=== PATIENT | male | born 1970 | race Caucasian/White ===

== ENCOUNTER 2019-01-20 08:44 | Outpatient (RCR) | payer OTHER ==
[~2019-01-20 08:44] MED LIST: ACULAR 3 ML3 ML OP; AMOXICILLIN875 MG PO; HCTZ12.5TAB PO; IBUPROFEN400 MG PO; LORTAB 5/500 501 TAB PO; TOBRADEX EYE DRO5 ML OP
== END 2019-02-01 09:58 | disposition home or self-care (01) ==
LOC: WSOH 08:44
DX: S92.312A Displaced fracture of first metatarsal bone, left foot, initial encounter for closed fracture (principal); S90.32XA Contusion of left foot, initial encounter; S90.812A Abrasion, left foot, initial encounter; W30.89XA Contact with other specified agricultural machinery, initial encounter; Y92.59 Other trade areas as the place of occurrence of the external cause; Y99.0 Civilian activity done for income or pay; Z23 Encounter for immunization; I10 Essential (primary) hypertension